=== PATIENT | male | born 1935 | race Caucasian/White ===

== ENCOUNTER 2021-08-05 22:21 | Inpatient (IN) | payer MEDICARE, OTHER ==
[~2021-08-05] VITALS: Ht 188 cm; Wt 77.1 kg
[2021-08-05] MEDS ORDERED: TRAM50TA2 PO (22:51)
[2021-08-05] MEDS ORDERED: DIGO125T5 PO (22:51)
[2021-08-05] MEDS ORDERED: FINA5TAB11 PO (22:51)
[2021-08-05] MEDS ORDERED: LAMO25TA10 PO (22:51)
[2021-08-05] MEDS ORDERED: LACT1TAB12 PO (22:51)
[2021-08-05] MEDS ORDERED: ERGO1POW10 PO (22:51)
[2021-08-05] MEDS ORDERED: TAMS-3 PO (22:51)
[2021-08-05] MEDS ORDERED: BUPR100T5 PO (22:51)
[2021-08-05] MEDS ORDERED: ATOR80TA PO (22:51)
[2021-08-05] MEDS ORDERED: FLUT16SP16 BNOSTRILS (22:51)
[2021-08-05] MEDS ORDERED: METO-358 PO (22:51)
[2021-08-05] MEDS ORDERED: LORA-258 PO (22:51)
[2021-08-05] MEDS ORDERED: APIX5TAB4 PO (22:51)
[2021-08-05] MEDS ORDERED: ACET-2154 PO (22:51)
[2021-08-05] MEDS ORDERED: SENN-261 PO (22:51)
[2021-08-05] MEDS ORDERED: FERR325T28 PO (22:51)
[2021-08-05] MEDS ORDERED: ALLO100T PO (22:51)
[2021-08-05 23:16] LABS: HEMATOCRIT 35.9 % (36.7-47.1); MEAN CORPUSCULAR HEMOGLOBIN 27.7 uug (23.8-33.4); MEAN CORPUSCULAR VOLUME 84.4 fL (73.0-96.2); PLATELET COUNT (AUTO) 236 K/uL (152-348)
[2021-08-05 23:48] LABS: ETHANOL < 3 MG/DL (0-0)
[2021-08-05 23:49] LABS: THYROID STIMULATING HORMONE 4.414 mIU/mL (0.358-3.740)
[2021-08-06 00:04] LABS: ACETAMINOPHEN < 2.0 ug/mL (10-30); ALANINE AMINOTRANSFERASE 31 U/L (16-63); ALKALINE PHOSPHATASE 178 U/L (50-136); ASPARTATE AMINOTRANSFERASE 17 U/L (15-37); BILIRUBIN,DIRECT 0.1 mg/dL (0.0-0.2); BILIRUBIN,TOTAL 0.4 mg/dL (0.2-1.0); CARBON DIOXIDE 28 mmol/L (21-32); CHLORIDE 104 mmol/L (98-107); CREATINE KINASE, TOTAL 27 U/L (39-308); CREATININE 1.4 mg/dL (0.6-1.3); GLUCOSE 100 mg/dL (74-106); UREA NITROGEN, BLOOD 26 mg/dL (7-18)
[2021-08-06] MEDS ORDERED: ACETAMINOPHEN 325 MG TABLET-SA PATIENTS-PAIN ONLY PO PRN (01:00)
[2021-08-06] MEDS ORDERED: ERGOCALCIFEROL 1.25 MG PO SCH (01:00)
[2021-08-06 02:23] LABS: *BILIRUBIN,URIN NEGATIVE (NEGATIVE); *BLOOD, URINE NEGATIVE (NEGATIVE); *COLOR,URINE YELLOW (YELLOW); *KETONES,URINE NEGATIVE (NEGATIVE); *UROBILINOGEN,URINE 0.2 E.U./dl (NORMAL); LEUKOCYTE ESTERASE ,URINE 2+ (NEGATIVE); NITRITE, URINE POSITIVE (NEGATIVE); PH,URINE 6.5 (5.0-8.0); UGLUCOSE NEGATIVE (NEGATIVE)
[2021-08-06 02:35] LABS: *CLARITY,URINE HAZY (CLEAR)
--- NOTE | 2021-08-06 02:44 | NUR ---
Called hat stock laminating machine operator Alec for psych eval.
[2021-08-06 02:48] LABS: BACTERIA,URINE MANY /HPF (NONE SEEN); RBC,URINE 0-3 /HPF (0-3); SQUAMOUS EPITHELIAL CELL,UR FEW /HPF (NONE SEEN)
[2021-08-06 02:53] LABS: *AMPHETAMINE, URINE NEGATIVE (NEGATIVE); *CANNABINOID, URINE NEGATIVE (NEGATIVE); *COCCAINE, URINE NEGATIVE (NEGATIVE); *OPIATE, URINE NEGATIVE (NEGATIVE); *PHENCYCLIDINE SCREEN,URINE NEGATIVE (NEGATIVE)
[2021-08-06] MEDS ORDERED: ZIPRASIDONE MESYLATE 20 MG VIAL IM ONE ×2 (03:14→03:15)
--- NOTE | 2021-08-06 03:49 | NUR ---
Jazmin Barbour LCSW at bedside for psych evaluation.
--- NOTE | 2021-08-06 04:34 | NUR ---
Report given to Alan MORENO MHU.
[2021-08-06] MEDS ORDERED: CEFTRIAXONE 1 G VIAL ONE (04:43)
[2021-08-06] MEDS ORDERED: LIDOCAINE HCL 1% 20 ML VIAL ONE (04:43)
[2021-08-06] MEDS ORDERED: CEFTRIAXONE 1 G VIAL IM ONE (04:45)
[2021-08-06] MEDS ORDERED: CEFTRIAXONE 1 G VIAL IV ONE (04:45)
--- NOTE | 2021-08-06 05:02 | NUR ---
GPS/NSG ADMIT NOTE Patient is an 85 yr old male admitted to mental health for danger to others and grave disability per hold because he became agitated with staff, exhibiting bizarre behavior. Patient admitted under Dr. Sims psychiatrist and Valerie Ramos.Lisbet orders received. Upon arrival patient appeared to reflect the clinicians assessment. Patient was confused, disorganized and uncooperative. Skin appeared intact, discolorations located on left anterior hand, photo inserted in chart. Patient's medical record reports a hx of dysphagia as well as a pureed diet with thickened liquids, swallow evaluation ordered. Patient was unable to complete admission process due to altered mental status. Advisement and patient's rights handbook provided. Plan of care initiated. Monitor for safety. Patient last observed in room with eyes closed.
[2021-08-06 05:34] VITALS: BP 146/88
[2021-08-06] MEDS ORDERED: BLOOD SUGAR DIAGNOSTIC 1 EACH STRIP VI ONE (05:45)
[2021-08-06] MEDS ORDERED: ACETAMINOPHEN 325 MG TABLET PO PRN ×2 (05:45)
[2021-08-06] MEDS ORDERED: LORAZEPAM 0.5 MG TABLET PO PRN (05:45)
[2021-08-06] MEDS ORDERED: MAG HYDROX/AL HYDROX/SIMETH 30 ML LIQUID UDC PO PRN (05:45)
[2021-08-06] MEDS ORDERED: TEMAZEPAM 7.5 MG CAPSULE PO PRN (05:45)
[2021-08-06] MEDS ORDERED: MAGNESIUM HYDROXIDE 30 ML LIQUID UDC PO PRN (05:45)
--- NOTE | 2021-08-06 06:47 | NUR ---
GPS: VACCINATION STATUS: Spoke to "Selina" nurse at [facility]. regarding pt's PNA and Flu vaccine status. Communicated.
[2021-08-06 08:11] VITALS: BP 123/65
[2021-08-06] MEDS: FLUTICASONE PROP NASAL SPRAY 16 GM BOTTLE NS SCH (08:53)
[2021-08-06] MEDS: ALLOPURINOL 100 MG TABLET PO SCH (08:54)
[2021-08-06] MEDS: APIXABAN 5 MG TABLET PO SCH ×2 (08:54→17:25)
[2021-08-06] MEDS: ACIDOPHILUS/BULGARICUS CHEW TAB PO SCH (08:55)
[2021-08-06] MEDS: FINASTERIDE 5 MG TABLET PO SCH (08:55)
[2021-08-06] MEDS: DIGOXIN 125 MCG TABLET PO SCH (08:55)
[2021-08-06] MEDS: METOPROLOL SUCCINATE XL 50 MG TAB.SR.24H PO SCH (08:55)
[2021-08-06] MEDS ORDERED: ATORVASTATIN PO SCH (09:00)
[2021-08-06] MEDS ORDERED: Medication Not On Formulary EA (Metoprolol Succinate 1 TAB) PO SCH (09:00)
[2021-08-06] MEDS ORDERED: Medication Not On Formulary EA (Lactobacillus Acidophilus (Acidophilus) 1 TAB) PO SCH (09:00)
--- NOTE | 2021-08-06 09:54 | NUR ---
Firearms Report: Executive Communications Manager completed and submitted a [employer] firearms report for 5150 grave disability and DTO certifications. A copy of report has been placed in patient chart.
--- NOTE | 2021-08-06 14:39 | NUR ---
SW Initial Discharge Note Pt currently resides at [facility] ([phone]) located at [address] [place] [address]. Pt's medical doctor is Dr. Melendrez. Pt's psychiatrist is Dr. Suh and RASHIDA Aragon. LUDIN contacted [facility] and spoke with TIFFANIE Clark, who stated pt is welcomed back at the facility upon discharge if he no longer exhibits aggressive behaviors. LUDIN contacted pt's daughter, Afia Perkins ([phone]) and discussed treatment and discharge plan. Afia provided collateral. LUDIN will work with pt, pt's family, treatment team, and MD to ensure a safe and proper discharge.
--- NOTE | 2021-08-06 14:39 | NUR ---
SW Family Contact LIU spoke with patient's daughter, Afia Perkins ([phone]) and discussed treatment and discharge plan. Afia provided collateral information (see liu assessment). Afia would like patient to return to [facility] to continue to get stronger and assess if he is able to return home. LIU provided Afia with information and contact info for Family Caregiver Support Program ([phone]) for caregiver support and resources
[2021-08-06 16:45] VITALS: BP 135/81
[2021-08-06 20:00] VITALS: BP 112/53
[2021-08-06] MEDS: ATORVASTATIN 20 MG TABLET PO SCH (20:07)
[2021-08-06] MEDS: TAMSULOSIN HCL 0.4 MG CAP.SR.24H PO SCH (20:07)
[2021-08-06] MEDS: SENNOSIDES 1 TABLET PO SCH (20:07)
--- NOTE | 2021-08-06 22:33 | NUR ---
GPS: Dr. Bautista was made aware of U/A results collected 08/05 with NNO given at this time. Pt.is afebrile and asymptomatic at this time. No aggressive behavior noted. Procedures explained prior to administration to gain cooperation. Fall precautions observed.
--- NOTE | 2021-08-07 06:53 | NUR ---
GPS: Pt.was combative,trying to hit staff during incontinence care despite explanation of procedure from staff. Re-directed prn. Safe environment provided. Will continue to monitor.
[2021-08-07] MEDS: FINASTERIDE 5 MG TABLET PO SCH ×2 (08:24→08:50)
[2021-08-07] MEDS: DIVALPROEX 250 MG TABLET.DR PO SCH ×3 (08:24→20:30)
[2021-08-07 08:40] VITALS: BP 116/60
[2021-08-07] MEDS: FLUTICASONE PROP NASAL SPRAY 16 GM BOTTLE NS SCH (08:48)
[2021-08-07] MEDS: APIXABAN 5 MG TABLET PO SCH ×2 (08:49→17:00)
[2021-08-07] MEDS: DIGOXIN 125 MCG TABLET PO SCH (08:50)
[2021-08-07] MEDS: ALLOPURINOL 100 MG TABLET PO SCH (08:50)
[2021-08-07] MEDS: ACIDOPHILUS/BULGARICUS CHEW TAB PO SCH (08:50)
[2021-08-07] MEDS: METOPROLOL SUCCINATE XL 50 MG TAB.SR.24H PO SCH (08:53)
[2021-08-07] MEDS: risperiDONE 0.5 MG TABLET PO SCH ×2 (08:53→20:12)
[2021-08-07] MEDS: RIVASTIGMINE TARTRATE 1.5 MG CAPSULE PO SCH ×2 (08:54→20:12)
[2021-08-07] MEDS ORDERED: DIVALPROEX 125 MG TABLET.DR PO SCH (09:00)
--- NOTE | 2021-08-07 14:07 | NUR ---
Received patient AAOS! confused and disoriented, labile agitated at time. assisted patient up to Carol-chair stay in activity room. not cooperative easily get irritable when redirected .with episode of yelling and screaming ,total care to all ADLS ,will continue close monitoring.
[2021-08-07 16:39] VITALS: BP 121/59
[2021-08-07 20:06] VITALS: BP 118/62
[2021-08-07] MEDS: SENNOSIDES 1 TABLET PO SCH (20:12)
[2021-08-07] MEDS: ATORVASTATIN 20 MG TABLET PO SCH (20:12)
[2021-08-07] MEDS: TAMSULOSIN HCL 0.4 MG CAP.SR.24H PO SCH (20:14)
--- NOTE | 2021-08-08 06:40 | NUR ---
GPS: Pt.remains unpredictable,combative during incontinence care. Procedures explained prior to administration to gain cooperation. Fall precautions observed. Reality re-orientation provided. Will continue to re-direct prn.
[2021-08-08 07:32] VITALS: BP 117/78
[2021-08-08] MEDS: FLUTICASONE PROP NASAL SPRAY 16 GM BOTTLE NS SCH (08:55)
[2021-08-08] MEDS: ACIDOPHILUS/BULGARICUS CHEW TAB PO SCH (08:56)
[2021-08-08] MEDS: FINASTERIDE 5 MG TABLET PO SCH (08:56)
[2021-08-08] MEDS: DIGOXIN 125 MCG TABLET PO SCH (08:56)
[2021-08-08] MEDS: RIVASTIGMINE TARTRATE 1.5 MG CAPSULE PO SCH ×2 (08:56→20:54)
[2021-08-08] MEDS: ALLOPURINOL 100 MG TABLET PO SCH (08:56)
[2021-08-08] MEDS: risperiDONE 0.5 MG TABLET PO SCH ×2 (08:56→20:54)
[2021-08-08] MEDS: METOPROLOL SUCCINATE XL 50 MG TAB.SR.24H PO SCH (08:57)
[2021-08-08] MEDS: APIXABAN 5 MG TABLET PO SCH ×2 (08:57→17:28)
[2021-08-08] MEDS: DIVALPROEX 250 MG TABLET.DR PO SCH ×2 (08:59→20:54)
[2021-08-08] MEDS: CEphaleXIN 500 MG CAPSULE PO SCH ×2 (12:38→17:28)
--- NOTE | 2021-08-08 16:40 | NUR ---
Received MRSA positive result for both nares Oleg RRT made aware with new order made.
[2021-08-08 16:45] VITALS: BP 111/63
[2021-08-08 19:46] VITALS: BP 145/76
[2021-08-08] MEDS: ATORVASTATIN 20 MG TABLET PO SCH (20:54)
[2021-08-08] MEDS: SENNOSIDES 1 TABLET PO SCH (20:58)
[2021-08-08] MEDS: TAMSULOSIN HCL 0.4 MG CAP.SR.24H PO SCH (20:58)
[2021-08-08] MEDS: MUPIROCIN 2% OINT 22 GM TUBE NS SCH (20:58)
--- NOTE | 2021-08-08 22:46 | NUR ---
PATIENT RECEIVED IN BED AWAKE. PATIENT ALERT/ORIENTED X 1-2 WITH CONFUSION NOTED. PATIENT REQUIRES REDIRECTION. PATIENT WAS COMPLAINT WITH MEDICATION AND PLEASANT UPON APPROACH. NO AGGRESSIVE OR COMBATIVE BEHAVIOR NOTED. SAFETY MEASURES RENDERED. BED IN LOWEST POSITION, BED LOCKED, AND BED ALARM ON WHILE IN BED. PATIENT IN NO APPARENT DISTRESS. PATIENT DENIED PAIN. PATIENT IS ABLE TO MAKE NEEDS KNOWN. BACTROBAN OINTMENT RENDERED PER ORDER.
[2021-08-09] MEDS: CEphaleXIN 500 MG CAPSULE PO SCH ×2 (06:12)
[2021-08-09 07:30] VITALS: BP 106/58
[2021-08-09] MEDS: DIGOXIN 125 MCG TABLET PO SCH (08:21)
[2021-08-09] MEDS: DIVALPROEX 250 MG TABLET.DR PO SCH ×2 (08:21→20:43)
[2021-08-09] MEDS: risperiDONE 0.5 MG TABLET PO SCH ×2 (08:21→20:43)
[2021-08-09] MEDS: ACIDOPHILUS/BULGARICUS CHEW TAB PO SCH (08:22)
[2021-08-09] MEDS: RIVASTIGMINE TARTRATE 1.5 MG CAPSULE PO SCH ×2 (08:22→20:43)
[2021-08-09] MEDS: ALLOPURINOL 100 MG TABLET PO SCH (08:22)
[2021-08-09] MEDS: FINASTERIDE 5 MG TABLET PO SCH (08:22)
[2021-08-09] MEDS: METOPROLOL SUCCINATE XL 50 MG TAB.SR.24H PO SCH ×2 (08:25→08:28)
[2021-08-09] MEDS: MUPIROCIN 2% OINT 22 GM TUBE NS SCH ×2 (08:27→20:44)
[2021-08-09] MEDS: FLUTICASONE PROP NASAL SPRAY 16 GM BOTTLE NS SCH (08:28)
[2021-08-09] MEDS: APIXABAN 5 MG TABLET PO SCH ×2 (08:30→16:41)
[2021-08-09] MEDS ORDERED: ERGOCALCIFEROL 50,000 UNIT CAPSULE PO SCH (09:00)
--- NOTE | 2021-08-09 09:53 | NUR ---
LUDIN Discharge Update: Pt currently resides at [facility] ([phone]) located at [address] [place] [address]. LUDIN spoke with Lian in admissions who stated that per the continuity director, pt is welcome back upon discharge.
[2021-08-09 15:28] VITALS: BP 115/49
--- NOTE | 2021-08-09 15:36 | NUR ---
Received pt .is confused,disoriented and disorganized. Easily irritable at times when approached. Has tendency to be aggressive during care.compliant with all po medication ,on ATB for UTI , Poor insight to present situation and poor judgement Fall precautions observed. Reality re-orientation provided.
[2021-08-09 19:50] VITALS: BP 99/52
[2021-08-09] MEDS: SULFAMETH/TRIMETH 800/160 MG TABLET PO SCH (20:43)
[2021-08-09] MEDS: ATORVASTATIN 20 MG TABLET PO SCH (20:43)
[2021-08-09] MEDS: SENNOSIDES 1 TABLET PO SCH (20:43)
[2021-08-09] MEDS: TAMSULOSIN HCL 0.4 MG CAP.SR.24H PO SCH (20:44)
--- NOTE | 2021-08-10 05:06 | NUR ---
Received patient seated at the reclining chair, patient cooperative with care and medications, no complain of pain, sleep well all night, no behavioral problem noted, bed alarm was turn on for safety, cont to monitor.
[2021-08-10 07:30] VITALS: BP 113/62
[2021-08-10 07:51] LABS: HEMATOCRIT 34.8 % (36.7-47.1); MEAN CORPUSCULAR HEMOGLOBIN 28.3 uug (23.8-33.4); MEAN CORPUSCULAR VOLUME 83.2 fL (73.0-96.2); PLATELET COUNT (AUTO) 205 K/uL (152-348)
[2021-08-10 08:01] LABS: BILIRUBIN,TOTAL 0.3 mg/dL (0.2-1.0); CREATININE 1.2 mg/dL (0.6-1.3); MAGNESIUM 2.2 mg/dL (1.8-2.4); PHOSPHOROUS 4.3 mg/dL (2.5-4.9); POTASSIUM 4.3 mmol/L (3.5-5.1); TOTAL PROTEIN, SERUM 6.5 g/dL (6.4-8.2)
[2021-08-10] MEDS: risperiDONE 0.5 MG TABLET PO SCH (08:31)
[2021-08-10] MEDS: DIVALPROEX 250 MG TABLET.DR PO SCH (08:33)
[2021-08-10] MEDS: DIGOXIN 125 MCG TABLET PO SCH (08:34)
[2021-08-10] MEDS: FINASTERIDE 5 MG TABLET PO SCH (08:34)
[2021-08-10] MEDS: SULFAMETH/TRIMETH 800/160 MG TABLET PO SCH (08:34)
[2021-08-10] MEDS: RIVASTIGMINE TARTRATE 1.5 MG CAPSULE PO SCH (08:34)
[2021-08-10] MEDS: APIXABAN 5 MG TABLET PO SCH (08:35)
[2021-08-10] MEDS: FLUTICASONE PROP NASAL SPRAY 16 GM BOTTLE NS SCH (08:36)
[2021-08-10] MEDS: ACIDOPHILUS/BULGARICUS CHEW TAB PO SCH (08:36)
[2021-08-10] MEDS: ALLOPURINOL 100 MG TABLET PO SCH (08:37)
[2021-08-10] MEDS: MUPIROCIN 2% OINT 22 GM TUBE NS SCH (09:00)
[2021-08-10] MEDS: METOPROLOL SUCCINATE XL 50 MG TAB.SR.24H PO SCH (09:00)
--- NOTE | 2021-08-10 09:54 | NUR ---
LUDIN Discharge Note: Pt will be discharged to [facility] ([phone]) located at [address] [place] [address]. LUDIN spoke with Lian in admissions who stated that per the state historical society director, they are ready to accept the patient today. Pt is aware and agreeable with discharge plans. LUDIN informed pts daughter, Afia Perkins ([phone]) regarding the discharge plan this AM on 08/10/21 and Afia is aware and agreeable. Pt is alert and oriented x3, is unable to plan for self-care at this time; however, is willing to accept care at SNF. Pt denies any suicidal or homicidal ideation. Pt will follow-up at the facility with Psychiatrist, Dr. Suh and KNOBBER Cullen Russell and Internal Corrosion Specialist, Dr. Melendrez. Pt presents with calm mood and congruent affect. PHARMACY: [facility] ([phone]) [address] [place] [address].
--- NOTE | 2021-08-10 10:00 | NUR ---
Received patient sleeping in his room. A/O X 1 to person. Pt. is forgetful, confused, disoriented, irritable at times. Requires more than minimal assistance with ADL. Incontinent of bladder and bowel. Emotional support provided. Fall and safety precautions implemented.
--- NOTE | 2021-08-10 13:56 | NUR ---
Received orders to discharge this patient to [facility] ([phone]) located at [address] [address]. Pt. is A/O X 1 -2 to person, place. Pt. is cooperative with nursing care and compliant with medications. Pt. did not bring any belongings. Reassurance provided. Fall and safety precautions implemented. Patient left the floor around 13:30.
== END 2021-08-10 13:30 | DRG 885 ==
LOC: ER 22:21 → GPS 08-06 04:47
PROVIDERS: ADMIT Psychiatry & Neurology Psychiatry; ATTEND Family Medicine
DX: F39 Unspecified mood [affective] disorder (principal); N17.9 Acute kidney failure, unspecified; N18.9 Chronic kidney disease, unspecified; G91.2 (Idiopathic) normal pressure hydrocephalus; N39.0 Urinary tract infection, site not specified; F32.9 Major depressive disorder, single episode, unspecified; E78.5 Hyperlipidemia, unspecified; F41.9 Anxiety disorder, unspecified; I25.10 Atherosclerotic heart disease of native coronary artery without angina pectoris; I48.91 Unspecified atrial fibrillation; I51.7 Cardiomegaly; J44.9 Chronic obstructive pulmonary disease, unspecified; M51.36 Other intervertebral disc degeneration, lumbar region; Z79.01 Long term (current) use of anticoagulants; Z73.6 Limitation of activities due to disability; I70.0 Atherosclerosis of aorta; D63.8 Anemia in other chronic diseases classified elsewhere; R13.10 Dysphagia, unspecified; M10.9 Gout, unspecified; N40.0 Benign prostatic hyperplasia without lower urinary tract symptoms; F29 Unspecified psychosis not due to a substance or known physiological condition; Z20.822 Contact with and (suspected) exposure to COVID-19
CPT/HCPCS: 36415; 80164; 83735; 83970; 84100; 84155; 84165; 84443; 85025; 87077; 87086; 97161; A4663; C1758; G0480; J0696; J3486; J3490; J3535; J8499